=== PATIENT | male | born 1980 | race Caucasian/White ===

== ENCOUNTER 2019-08-17 10:44 | Emergency (ER) | payer OTHER ==
[~2019-08-17] VITALS: Ht 182.9 cm; Wt 113.0 kg
[~2019-08-17 10:44] MED LIST: CEFP100T PO; LACT1CAP19 PO; SULF-143 PO
--- NOTE | 2019-08-17 11:16 | PHYS DOC ---
Past Medical History Past Medical History: No Pertinent History Past Surgical History: Appendectomy Smoking Status: Never Smoker Alcohol Use: None Drug Use: None Adult General Chief Complaint Chief Complaint: LOWER EXTREMITY SWELLING HPI HPI Patient is a 38 year old male who presents with Left medial upper calf quarter sized red area without blistering or drainage that popped up this morning. Y esterday to his bottom medial calf has another quarter sized norris area that looks the same as the upper medial calf reddened area. Patient states his only history is past cellulitis of this leg. He rates his pain a 5/10 and states it is tender to touch and feels like a "bee sting". Review of Systems Review of Systems Integument: Left leg redness. Denies rash or skin lesions [] All other systems were reviewed and found to be within normal limits, except as documented in this note. Allergies Allergies Allergies Coded Allergies Type Severity Reaction Last Updated Verified cheese Allergy Mild STOMACH CRAMPS-CHEDDAR ONLY 04/23/18 Yes amoxicillin Adverse Reaction Mild ABD CRAMPS 04/22/18 Yes clavulanic acid Adverse Reaction Mild ABD CRAMPS 04/22/18 Yes Physical Exam Physical Exam Constitutional: Well developed, well nourished, no acute distress, non-toxic appearance. [] HENT: Normocephalic, atraumatic, bilateral external ears normal, oropharynx moist, no oral exudates, nose normal. [] Eyes: PERRLA, EOMI, conjunctiva normal, no discharge. [] Neck: Normal range of motion, no tenderness, supple, no stridor. [] Cardiovascular:Heart rate regular rhythm, no murmur [] Lungs & Thorax: Bilateral breath sounds clear to auscultation [] Abdomen: Bowel sounds normal, soft, no tenderness, no masses, no pulsatile masses. [] Skin: Warm, dry, Left upper medial and lower medial erythema with tenderness and 1+ edema, no rash. [] Back: No tenderness, no CVA tenderness. [] Extremities: No tenderness, no cyanosis, no clubbing, ROM intact, no edema. [] Neurologic: Alert and oriented X 3, normal motor function, normal sensory function, no focal deficits noted. [] Psychologic: Affect normal, judgement normal, mood normal. [] Current Patient Data Vital Signs Vital Signs Date Time Temp Pulse Resp B/P (MAP) Pulse Ox O2 Delivery O2 Flow Rate FiO2 08/17/19 11:07 98.5 94 20 148/104 (119) 99 Room Air 98.5 Lab Values Laboratory Tests Test 08/17/19 11:23 08/17/19 11:35 White Blood Count 8.5 x10^3/uL (4.0-11.0) Red Blood Count 5.47 x10^6/uL (4.30-5.70) Hemoglobin 15.2 g/dL (13.0-17.5) Hematocrit 44.8 % (39.0-53.0) Mean Corpuscular Volume 82 fL (79-100) Mean Corpuscular Hemoglobin 28 pg (25-35) Mean Corpuscular Hemoglobin Concent 34 g/dL (31-37) Red Cell Distribution Width 13.7 % (11.5-14.5) Platelet Count 291 x10^3/uL (140-400) Neutrophils (%) (Auto) 64 % (31-73) Lymphocytes (%) (Auto) 25 % (24-48) Monocytes (%) (Auto) 9 % (0-9) Eosinophils (%) (Auto) 2 % (0-3) Basophils (%) (Auto) 1 % (0-3) Neutrophils # (Auto) 5.5 x10^3/uL (1.8-7.7) Lymphocytes # (Auto) 2.1 x10^3/uL (1.0-4.8) Monocytes # (Auto) 0.7 x10^3/uL (0.0-1.1) Eosinophils # (Auto) 0.1 x10^3/uL (0.0-0.7) Basophils # (Auto) 0.1 x10^3/uL (0.0-0.2) Sodium Level 137 mmol/L (136-145) Potassium Level 3.9 mmol/L (3.5-5.1) Chloride Level 100 mmol/L (98-107) Carbon Dioxide Level 28 mmol/L (21-32) Anion Gap 9 (6-14) Blood Urea Nitrogen 13 mg/dL (8-26) Creatinine 0.8 mg/dL (0.7-1.3) Estimated GFR (Cockcroft-Gault) 108.2 BUN/Creatinine Ratio 16 (6-20) Glucose Level 98 mg/dL (70-99) Calcium Level 8.8 mg/dL (8.5-10.1) Total Bilirubin 0.4 mg/dL (0.2-1.0) Aspartate Amino Transferase (AST) 35 U/L (15-37) Alanine Aminotransferase (ALT) 55 U/L (16-63) Alkaline Phosphatase 83 U/L (46-116) Total Protein 8.1 g/dL (6.4-8.2) Albumin 3.9 g/dL (3.4-5.0) Albumin/Globulin Ratio 0.9 (1.0-1.7) L Lactic Acid Level 0.9 mmol/L (0.4-2.0) Laboratory Tests 08/17/19 11:23 Laboratory Tests 08/17/19 11:23 EKG EKG [] Radiology/Procedures Radiology/Procedures [] Impressions: [facility] [id number] [place] [address] IMAGING REPORT Signed PATIENT: KIKE LORD EACCOUNT: [id number] : 1980 LOCATION: ER AGE: 38 SEX: M EXAM STATUS: REG ER ORD. PHYSICIAN: KAMILA PALAFOX APRN REASON: left le swelling/redness medial calf area PROCEDURE: VENOUS LOWER EXTREMITY LEFT Left Leg Venous Doppler Ultrasound, 08/17/2019 Indication: Left leg swelling and redness in the calf area Comparison: Left lower extremity Venous Doppler from April 21, 2018 Procedure: Real-time grayscale, color flow color duplex Doppler and spectral analysis are obtained with and without compression in the area of the common femoral vein, superficial femoral vein - femoral vein junction, main femoral vein (superficial femoral vein) and popliteal vein. Veins of the proximal calf are also imaged. Findings: There is normal duplex flow, color flow and compressibility of all visualized vein segments. No evidence of deep venous thrombus is present. There is no evidence of superficial femoral phlebitis noted. Impression: Negative venous Doppler of left lower extremity Electronically signed by: Mary Murcia MD (08/17/2019 12:55 PM) [id number] DICTATED and SIGNED BY: MARY MURCIA MD DATE: 08/17/19 1252 Course & Med Decision Making Course & Med Decision Making Pertinent Labs and Imaging studies reviewed. (See chart for details) Afebrile. 1+ swelling to left lower extremity in the areas of redness only. Ambulatory with steady gait. Speaks in full clear sentences. Patient states he had put a band aid over the lower leg area yesterday and not has a rash in the outline of the band aid. No calf tenderness but the upper medial calf area is slightly raised and hard. Pedal pulse strong and present. Denies numbness or tingling, fever, nausea, abdominal pain, vomiting, body aches, headache, soa, chest pain, focal weakness, vision changes. Patient remains afebrile. Blood work is unremarkable. Lactic acid is normal. Ultrasound shows no acute findings. Patient will be placed on Bactrim and to follow up with primary care doctor or here in 48 hours especially if getting worse. I have also outlined the area with a skin marker. [] Dragon Disclaimer Dragon Disclaimer This electronic medical record was generated, in whole or in part, using a voice recognition dictation system. Departure Departure Impression: Primary Impression: Left leg cellulitis Disposition: 01 HOME, SELF-CARE Condition: STABLE Referrals: NO PCP (PCP) Patient Instructions: Cellulitis Additional Instructions: Follow up with primary care physician or here in 48 hours if getting worse. Take medication as prescribed and with food. Scripts Sulfamethoxazole/Trimethoprim (BACTRIM DS TABLET) 1 Each Tablet 1 TAB PO BID for 10 Days, #20 TAB 0 Refills Prov: KAMILA PALAFOX APRN 08/17/19 KAMILA PALAFOX APRN Aug 17, 2019 11:16
[2019-08-17 11:39] LABS: BASO # 0.1 x10^3/uL (0.0-0.2); BASO % 1 % (0-3); EOS # 0.1 x10^3/uL (0.0-0.7); EOS % 2 % (0-3); HEMATOCRIT 44.8 % (39.0-53.0); HEMOGLOBIN 15.2 g/dL (13.0-17.5); LYMPH # 2.1 x10^3/uL (1.0-4.8); LYMPH % 25 % (24-48); MEAN CORPUSCULAR HEMOGLOBIN 28 pg (25-35); MEAN CORPUSCULAR HGB CONC 34 g/dL (31-37); MEAN CORPUSCULAR VOLUME 82 fL (79-100); MONO # 0.7 x10^3/uL (0.0-1.1); MONO % 9 % (0-9); NEUT # 5.5 x10^3/uL (1.8-7.7); NEUT % 64 % (31-73); PLATELET COUNT 291 x10^3/uL (140-400); RED BLOOD COUNT 5.47 x10^6/uL (4.30-5.70); RED CELL DISTRIBUTION WIDTH 13.7 % (11.5-14.5); WHITE BLOOD COUNT 8.5 x10^3/uL (4.0-11.0)
[2019-08-17 11:46] LABS: CALCIUM 8.8 mg/dL (8.5-10.1); CREATININE 0.8 mg/dL (0.7-1.3); GFR 108.2; POTASSIUM 3.9 mmol/L (3.5-5.1)
[2019-08-17 11:52] LABS: ALBUMIN 3.9 g/dL (3.4-5.0); ALBUMIN/GLOBULIN RATIO 0.9 (1.0-1.7); TOTAL BILIRUBIN 0.4 mg/dL (0.2-1.0); TOTAL PROTEIN 8.1 g/dL (6.4-8.2)
--- NOTE | 2019-08-17 12:58 | RAD ---
Left Leg Venous Doppler Ultrasound, 08/17/2019 Indication: Left leg swelling and redness in the calf area Comparison: Left lower extremity Venous Doppler from April 21, 2018 Procedure: Real-time grayscale, color flow color duplex Doppler and spectral analysis are obtained with and without compression in the area of the common femoral vein, superficial femoral vein - femoral vein junction, main femoral vein (superficial femoral vein) and popliteal vein. Veins of the proximal calf are also imaged. Findings: There is normal duplex flow, color flow and compressibility of all visualized vein segments. No evidence of deep venous thrombus is present. There is no evidence of superficial femoral phlebitis noted. Impression: Negative venous Doppler of left lower extremity Electronically signed by: Mary Murcia MD (08/17/2019 12:55 PM) [id number]
[2019-08-17] MEDS ORDERED: SULF1TAB24 PO (13:07)
[2019-08-17 13:37] VITALS: BP 137/85
== END 2019-08-17 13:35 | disposition home or self-care (01) ==
LOC: ER 10:44
DX: L03.116 Cellulitis of left lower limb (principal); Z88.1 Allergy status to other antibiotic agents; Z88.8 Allergy status to other drugs, medicaments and biological substances; Z91.018 Allergy to other foods
CPT/HCPCS: 36415; 80053; 83605; 85025; 93971; 99284-25